=== PATIENT | female | born 2000 | race African-American/Black ===

== ENCOUNTER 2021-09-30 14:43 | Emergency (ER) | payer OTHER ==
[~2021-09-30] VITALS: Ht 167.6 cm; Wt 85.0 kg
[2021-09-30 14:56] VITALS: BP 107/59
[2021-09-30 20:29] LABS: CLARITY URINE CLOUDY (CLEAR); COLOR URINE YELLOW (YELLOW); KETONES URINE TRACE (NEGATIVE); LEUKOCYTE ESTERASE URINE 3+ (NEGATIVE); NITRITE URINE NEGATIVE (NEGATIVE); OCCULT BLOOD URINE NEGATIVE (NEGATIVE); PH URINE 5.5 (4.5-8.0); PROTEIN URINE NEGATIVE (NEGATIVE); SPECIFIC GRAVITY URINE 1.019 (1.005-1.030)
[2021-09-30] MEDS ORDERED: AZITHROMYCIN 500 MG TABLET PO ONE (21:00)
[2021-09-30] MEDS ORDERED: CEFTRIAXONE SODIUM 500 MG/VIAL IM ONE (21:00)
[2021-09-30] MEDS ORDERED: NITR-87 MT (21:12)
[2021-10-03 07:08] LABS: NEISSERIA GONORRHOEAE NAA Negative (Negative)
== END 2021-09-30 22:15 | disposition home or self-care (01) ==
LOC: ER 14:43
DX: N39.0 Urinary tract infection, site not specified (principal); Z20.2 Contact with and (suspected) exposure to infections with a predominantly sexual mode of transmission
CPT/HCPCS: 81003; 81025; 87086; 87210; 87491; 87591; 96372; 99283; J0696

== ENCOUNTER 2021-10-17 19:41 | Emergency (ER) | payer OTHER ==
[~2021-10-17] VITALS: Ht 170.2 cm; Wt 75.0 kg
[~2021-10-17 19:41] MED LIST: NITR-87 MT
[2021-10-17] MEDS ORDERED: CEFTRIAXONE SODIUM 500 MG/VIAL IM ONE (21:15)
[2021-10-17] MEDS ORDERED: LEVO500T90 MT (21:50)
[2021-10-17 22:11] VITALS: BP 102/78
[2021-10-20 04:07] LABS: NEISSERIA GONORRHOEAE NAA Negative (Negative)
== END 2021-10-17 22:11 | disposition home or self-care (01) ==
LOC: ER 19:41
DX: A64 Unspecified sexually transmitted disease (principal)
CPT/HCPCS: 81025; 87491; 87591; 96372; 99283; J0696

== ENCOUNTER 2022-01-07 14:16 | Emergency (ER) | payer OTHER, MEDICAID ==
[~2022-01-07] VITALS: Ht 175.3 cm; Wt 70.0 kg
[~2022-01-07 14:16] MED LIST changes: +LEVO-65 MT
[2022-01-07] MEDS ORDERED: IBUPROFEN 600MG TABLET PO ONE (15:45)
[2022-01-07 16:19] VITALS: BP 100/65
== END 2022-01-07 17:21 | disposition home or self-care (01) ==
LOC: ER 14:37
DX: S93.601A Unspecified sprain of right foot, initial encounter (principal); J45.909 Unspecified asthma, uncomplicated; Z88.1 Allergy status to other antibiotic agents; X58.XXXA Exposure to other specified factors, initial encounter; Y93.41 Activity, dancing; Y92.89 Other specified places as the place of occurrence of the external cause; Y99.8 Other external cause status
CPT/HCPCS: 73630; 81025; 99283

== ENCOUNTER 2022-01-14 13:00 | Emergency (ER) | payer MEDICAID, OTHER ==
[~2022-01-14] VITALS: Ht 175.3 cm; Wt 69.0 kg
[2022-01-14 15:57] LABS: CLARITY URINE CLOUDY (CLEAR); COLOR URINE YELLOW (YELLOW); KETONES URINE NEGATIVE (NEGATIVE); LEUKOCYTE ESTERASE URINE 3+ (NEGATIVE); NITRITE URINE NEGATIVE (NEGATIVE); OCCULT BLOOD URINE NEGATIVE (NEGATIVE); PH URINE 7.5 (4.5-8.0); PROTEIN URINE 1+ (NEGATIVE); SPECIFIC GRAVITY URINE 1.023 (1.005-1.030)
[2022-01-14] MEDS ORDERED: CEFTRIAXONE SODIUM 500 MG/VIAL IM NR (17:30)
[2022-01-14] MEDS ORDERED: LIDOCAINE HCL 1% 10 MG/ML 10ML VIAL IJ NR (17:30)
[2022-01-14] MEDS ORDERED: AMOXICILLIN/POTASSIUM CLAVULANATE 875/125MG TAB PO NR (17:30)
[2022-01-14] MEDS ORDERED: FLUCONAZOLE 150MG TABLET PO NR (17:30)
[2022-01-14] MEDS ORDERED: AMOX1TAB16 MT (17:33)
[2022-01-14] MEDS ORDERED: METR-167 MT (17:33)
[2022-01-14 18:26] VITALS: BP 126/84
[2022-01-17 04:09] LABS: NEISSERIA GONORRHOEAE NAA Negative (Negative)
== END 2022-01-14 18:29 | disposition home or self-care (01) ==
LOC: ER 14:20
DX: Z20.2 Contact with and (suspected) exposure to infections with a predominantly sexual mode of transmission (principal); N39.0 Urinary tract infection, site not specified; J45.909 Unspecified asthma, uncomplicated; Z88.1 Allergy status to other antibiotic agents
CPT/HCPCS: 81003; 81025; 87491; 87591; 96372; 99283; J0696; J3490

== ENCOUNTER 2022-02-16 20:19 | Emergency (ER) | payer OTHER ==
[~2022-02-16] VITALS: Ht 172.7 cm; Wt 71.0 kg
[~2022-02-16 20:19] MED LIST changes: +AMOX1TAB16 MT; +METR-167 MT
[2022-02-16 20:24] VITALS: BP 113/75
[2022-02-16] MEDS ORDERED: ACETAMINOPHEN 325MG TABLET PO STA (21:59)
[2022-02-16 23:02] LABS: CLARITY URINE TURBID (CLEAR); COLOR URINE YELLOW (YELLOW); KETONES URINE 2+ (NEGATIVE); LEUKOCYTE ESTERASE URINE 3+ (NEGATIVE); NITRITE URINE POSITIVE (NEGATIVE); OCCULT BLOOD URINE 3+ (NEGATIVE); PH URINE 5.5 (4.5-8.0); PROTEIN URINE 1+ (NEGATIVE); SPECIFIC GRAVITY URINE 1.031 (1.005-1.030)
[2022-02-16] MEDS ORDERED: CEPH500T MT (23:24)
[2022-02-16] MEDS ORDERED: IBUP-2029 MT (23:24)
== END 2022-02-16 23:28 | disposition home or self-care (01) ==
LOC: ER 20:19
DX: N10 Acute pyelonephritis (principal); J45.909 Unspecified asthma, uncomplicated; Z79.899 Other long term (current) drug therapy
CPT/HCPCS: 81003; 99283

== ENCOUNTER 2022-02-25 19:22 | Emergency (ER) | payer OTHER ==
[~2022-02-25] VITALS: Ht 175.3 cm; Wt 71.0 kg
[~2022-02-25 19:22] MED LIST changes: +CEPH500T MT; +IBUP-2029 MT
[2022-02-25] MEDS ORDERED: DIF15 MT (23:37)
[2022-02-25 23:51] LABS: CLARITY URINE CLOUDY (CLEAR); COLOR URINE YELLOW (YELLOW); KETONES URINE NEGATIVE (NEGATIVE); LEUKOCYTE ESTERASE URINE 3+ (NEGATIVE); NITRITE URINE NEGATIVE (NEGATIVE); OCCULT BLOOD URINE NEGATIVE (NEGATIVE); PH URINE 6.5 (4.5-8.0); PROTEIN URINE NEGATIVE (NEGATIVE); SPECIFIC GRAVITY URINE 1.011 (1.005-1.030); UROBILINOGEN URINE 0.2 E.U./dL (0.2-1.0)
[2022-02-26 00:41] VITALS: BP 115/66
== END 2022-02-26 00:40 | disposition home or self-care (01) ==
LOC: ER 19:22
DX: B37.31 Acute candidiasis of vulva and vagina (principal)
CPT/HCPCS: 81003; 99283